=== PATIENT | male | born 1950 ===

== ENCOUNTER 2018-09-20 07:10 | Day surgery (SDC) | payer OTHER ==
[~2018-09-20 07:10] MED LIST: ATORVASTATIN CA40 MG PO; COZAAR25 MG PO; INTESTINEX680 MG PO; METFORMIN HCL500 M1 PO; PANTOPRAZOLE SO40 MG PO; TOPROL XL50 MG PO; TRAM1TAB98 PO
== END 2018-09-20 11:40 | disposition home or self-care (01) ==
LOC: AMB-ENDOS 07:10
DX: K64.8 Other hemorrhoids (principal)